=== PATIENT | female | born 1990 | race Caucasian/White ===

== ENCOUNTER 2016-12-15 14:24 | Emergency (ER) | payer OTHER ==
[~2016-12-15] VITALS: Ht 170.2 cm; Wt 104.3 kg
[~2016-12-15 14:24] MED LIST: ALBUTEROL0.09 MG/A1 INH; AMOXIL 875 MG875 MG PO; FIORICET 325 MG1 TAB PO; LIORESAL 10MG T10 MG PO; MOTRIN 600 MG600 MG PO; MOTRIN800 MG PO; PERCOCET 325 MG1 TA2 PO; PROAIR HFA0.09 MG/Ac IN; TESSALON PERLE100 MG PO; ULTRAM(MONOGRAP50 MG PO; VITAFOL-ONE1 SGL PO
--- NOTE | 2016-12-15 16:11 | ED GI/GU/ABDOMINAL COMPLAINT ---
History of Present Illness General Chief Complaint: Abdominal Pain/Flank Pain Stated Complaint: ABD PAIN Source: patient Exam Limitations: no limitations Vital Signs & Intake/Output Vital Signs & Intake/Output Vital Signs Date Time Temp Pulse Resp B/P Pulse O2 O2 Flow FiO2 Ox Delivery Rate 12/155 96.5 86 18 136/86 100 Room Air 12/15 1440 97.1 91 18 137/86 99 Room Air Allergies Coded Allergies: latex (LATEX SENSITIVITY 01/09/16) nickel (SWELLING 01/09/16) Triage Note: C/O RLQ ABDOMINAL PAIN X [address] SPAULDING, HAD US DONE, (2 CM OVARIAN CYST). PAIN WORSE TODAY, WITH VOMITING. Triage Nurses Notes Reviewed? yes ? n Is pt currently ? No Onset: Gradual Duration: day(s): (3) Timing: no prior history Quality/Severity: sharpness Severity Numbers: 7 Location: right lower quadrant Radiation: no radiation Activities at Onset: none Prior Abdominal Problems: none Past Sexual History: Unobtainable at this time No Modifying Factors: none HPI: Patient is a 26-year-old female presenting to the emergency department with chief complaint of right lower quadrant pain, nausea vomiting and tactile fevers and chills that have been going on for the past 3 days. She reports it started after having intercourse with her boyfriend. Denies any vaginal discharge or bleeding. Denies any urinary frequency or urgency or dysuria. Denies chance of STD. Sexually active with one person only. 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 She reports that the pain is moderate to severe sharp and stabbing. Denies taking anything to help with pain. (JUDD DIALLO) Reconcile Medications Acetaminophen/Butalbital/Caf (Fioricet 325 MG-50 MG-40 MG) 1 TAB TAB 1-2 TAB PO Q6P PRN HEADACHE DO NOT DRIVE AFTER TAKING IT. Albuterol Sulfate (Albuterol Sulfate Hfa) 90 MCG HFA.AER.AD 2 PUFF INH Q4-6 PRN PRN SHORTNESS OF BREATH 90 MCG PER PUFF Baclofen (Lioresal) 10 MG TAB 1 TAB PO TIDPRN PRN muscle strain Ibuprofen (Motrin) 800 MG TAB 1 TAB PO Q8H PRN PAIN Ibuprofen (Motrin 600 MG Tab) 600 MG TAB 1 TAB PO Q6P PRN PAIN Oxycodone HCl/Acetaminophen (Percocet 5-325 MG Tablet) 5 MG-325 MG TABLET 1-2 TAB PO Q6P PRN pain OXYCODONE HCL/ACETAMINOPHEN (Percocet 5-325 MG Tablet) 325 MG/5 MG TAB 1-2 TAB PO Q6 PRN pain Tramadol HCl (Ultram) 50 MG TAB 1 TAB PO Q6 PRN severe pain (JESSICA ANGULO) Past History Travel History Traveled to [place] past 21 day No Medical History Any Pertinent Medical History? see below for history Neurological: migraine EENT: TMJ Cardiovascular: NONE Respiratory: asthma Gastrointestinal: NONE Hepatic: NONE Renal: NONE Musculoskeletal: chronic back pain, disk herniation Psychiatric: depression Endocrine: NONE Blood Disorders: NONE Cancer(s): NONE KNITTING TESTER/Reproductive: NONE Surgical History Surgical History: non-contributory Psychosocial History What is your primary language Polish Tobacco Use: Current Daily Use Daily Tobacco Use Amount/Type: => 5 Cigarettes daily ETOH Use: denies use Family History Hx Contributory? No (JUDD DIALLO) Review of Systems Review of Systems Constitutional: Reports: fever, malaise. Comments Review of systems: See HPI, All other systems negative. Constitutional, no weight loss HEENT: No visual changes no sore throat no congestion Cardiovascular: No chest pain ,palpitation , orthopnea or ankle swelling Skin, no jaundice no rashes Respiratory: No dyspnea cough sputum or hemoptysis GI: No diarrhea : No dysuria No hematuria Muscle skeletal: no back pain, no neck pain, Neurologic: No numbness no confusion no tyler Psych: No stress anxiety or depression,. Heme/endocrine: No bruising no bleeding no polyuria or polydipsia Immunology: No splenectomy or history of AIDS (JUDD DIALLO) Physical Exam Physical Exam General Appearance: well developed/nourished, no apparent distress, alert, awake , comfortable Gastrointestinal: normal bowel sounds, soft, tenderness Comments: Well-developed well-nourished person in no acute distress HEENT: Pupils equally round and reactive to light and accommodation. Nose is atraumatic. External auditory canal and Tympanic membranes clear. Pharynx normal. No swelling or edema. Neck: Supple, no lymphadenopathy, normal range of motion without pain or tenderness Back: Nontender, no CVA tenderness. Cardiovascular: Regular rate and rhythms no murmurs rubs or gallops, normal JVP Respiratory: Chest nontender. No respiratory distress.breath sounds clear to auscultation bilaterally Abdomen: Soft, tender to palpation in the right lower quadrant with significant guarding, no rebound tenderness. Nondistended, no appreciable organomegaly. Normal bowel sounds. No ascites Extremity: No edema Neuro: Alert oriented x3 Skin: No appreciable rash on exposed skin, skin is warm and dry. Psych: Mood and affect is normal, memory and judgment is normal. Core Measures ACS in differential dx? No Severe Sepsis Present: No Septic Shock Present: No (WALE GRIER,JUDD) Progress Differential Diagnosis: appendicitis, ovarian cysts,gastritis, ovarian torsion,, kidney stone, dehydration, electrolyte abnormality Plan of Care: Orders Procedure Date/time Status URINE 12/15 161 Complete URINALYSIS 12/15 161 Complete C-REACTIVE PROTEIN 12/15 1610 Complete COMPREHENSIVE METABOLIC PANEL 12/15 1610 Complete CBC WITHOUT DIFFERENTIAL 12/15 1610 Complete Laboratory Tests 12/15/16 1656: Anion Gap 11, Estimated GFR > 60, BUN/Creatinine Ratio 11.7, Glucose 83, Calcium 9.7, Total Bilirubin 0.4, AST 63 H, ALT 43, Alkaline Phosphatase 52, C-Reactive Prot, Quant < 0.5, Total Protein 7.5, Albumin 4.6, Globulin 2.9, Albumin/ Globulin Ratio 1.6, CBC w Diff NO MAN DIFF REQ, RBC 4.72, MCV 91.4, MCH 30.7, RDW 13.4, MPV 8.4, Gran % 64.5, Lymphocytes % 28.9, Monocytes % 5.8, Eosinophils % 0.4, Basophils % 0.4, Absolute Granulocytes 8.9 H, Absolute Lymphocytes 4.0 H, Absolute Monocytes 0.8 H, Absolute Eosinophils 0.1, Absolute Basophils 0, PUBS MCHC 33.5, Urine Color YEL, Urine Clarity CLEAR, Urine pH 6.0, Ur Specific [place] 1.010, Urine Protein NEG, Urine Ketones NEG, Urine Nitrite NEG, Urine Bilirubin NEG, Urine Urobilinogen 0.2, Ur Leukocyte Esterase NEG, Ur Microscopic SEDIMENT EXAMINED, Urine RBC RARE, Ur Epithelial Cells RARE, Urine Hemoglobin SMALL H, Urine Glucose NEG, Urine Test NEGATIVE Diagnostic Imaging: Viewed by Me: CT Scan. Discussed w/RAD: CT Scan. Radiology Impression: PATIENT: DARRICK PERES PRESENT AGE: 26 PATIENT ACCOUNT NO: [id number] : 90 LOCATION: [facility] ORDERING PHYSICIAN: JUDD GRIER SERVICE DATE: 12/15/16 EXAM TYPE: CAT - CT ABD & PELVIS W IV CONTRAST EXAMINATION: CT ABDOMEN AND PELVIS WITH CONTRAST CLINICAL INFORMATION: Right lower quadrant pain. COMPARISON: None. TECHNIQUE: Multidetector volumetric imaging was performed of the abdomen and pelvis before and after the IV administration of 95 mL of Optiray 320 intravenous contrast. Sagittal and coronal reformatted images were obtained on the technologist's workstation. DLP: 808.57 mGy-cm. FINDINGS: LUNG BASES: The visualized lung bases are unremarkable. LIVER, GALLBLADDER, AND BILIARY TREE: The liver is normal in size, shape, and attenuation. No focal hepatic lesion or biliary ductal dilatation is present. The gallbladder is unremarkable with no evidence of radiopaque gallstones, gallbladder wall thickening, or obvious pericholecystic inflammatory changes. PANCREAS: Unremarkable. SPLEEN: Unremarkable. ADRENAL GLANDS: Unremarkable. KIDNEYS AND URETERS: The kidneys are normal in size, shape, and attenuation. No hydronephrosis, hydroureter, or calculi seen. No perinephric stranding. BLADDER: Unremarkable. GASTROINTESTINAL TRACT: The small and large bowel are unremarkable. The appendix is unremarkable. ABDOMINAL WALL: No significant hernia is appreciated. LYMPH NODES: Normal. VASCULAR: Unremarkable. PELVIC VISCERA: The right ovary is slightly heterogeneous in density measuring 3 cm AP. Uterus is anteverted. No fluid in the cul-de-sac OSSEOUS STRUCTURES: Unremarkable. IMPRESSION: 1. No acute abnormality of the abdomen or pelvis. Normal appendix. 2. Slightly heterogeneous density of the right ovary without enlargement of the ovary. The ovary could be further assessed with a pelvic ultrasound. DICTATED BY: VIKI MCKINNEY MD DATE/ TIME DICTATED:12/15/161827 MAIL MESSENGER:BREE DATE/TIME TRANSCRIBED: 12/15/161827 CONFIDENTIAL, DO NOT COPY WITHOUT APPROPRIATE AUTHORIZATION. < Electronically signed in Other Vendor System> SIGNED BY: VIKI MCKINNEY MD [id number] Initial ED EKG: none Hand-Off Endorsed To: JESSICA ANGULO Endorsed Time: 1948 Pending: ultrasound Comments: 12/15/2016 5:21:34 PM I will patient is afebrile, CBC, CMP, CRP ordered. Patient medicated with IV fluids, Zofran and Toradol. 12/15/2016 6:37:30 PM patient reports that she is feeling improved but still having pain [address] scan does not show any acute abnormality. Patient will follow ultrasound to rule out torsion. 12/15/2016 7:38:20 PM patient will be signed out to MARVEL Sparrow pending ultrasound results. if Ultrasound is negative patient will follow up with her [employer]IC[employer] WAFER BREAKER and primary care physician., Increase fluids. (JUDD DIALLO) Diagnostic Imaging: Viewed by Me: Ultrasound. Discussed w/RAD: Ultrasound. Radiology Impression: SERVICE DATE: 12/15/16 EXAM TYPE: US - US- TRANSVAGINAL EXAMINATION: ULTRASOUND PELVIC, COMPLETE CLINICAL INFORMATION: Right lower quadrant pain. COMPARISON: None. TECHNIQUE: Transvaginal: Used to better visualize pelvic structures Transabdominal: Not adequate for visualization Spectral Doppler and color Doppler exam was utilized. LMP: Approximately 3 weeks ago FINDINGS: Exam limited by body habitus and bowel gas. UTERUS: Unremarkable. Uterus measures 8 x 3.6 x 4.8 cm. Cervical length 2.4 cm. Endometrial stripe measures 1 cm. ADNEXA: Right Ovary: Doppler does demonstrate vascular flow in the right ovary. The assessment of vascularity though is limited by the position and depth of the ovary. Dominant follicle measures 1.4 cm. Left Ovary: Not visualized. Cul-de-sac: No Fluid IMPRESSION: Vascular flow noted in the right ovary with no enlargement or abnormal mass. No evidence for ovarian torsion. DICTATED BY: VIKI MCKINNEY MD DATE/TIME DICTATED:12/15/162026 MAIL MESSENGER:BREE DATE/TIME TRANSCRIBED:12/15/162026 (JESSICA ANGULO) Departure Departure Time of Disposition: 1911 Disposition: HOME OR SELF CARE Condition: Stable Clinical Impression Primary Impression: Abdominal pain Qualifiers: Abdominal location: right lower quadrant Qualified Code: R10.31 - Right lower quadrant pain Referrals: JASSON SCHWARTZ,NERIS Branham (PCP/Family) Departure Forms: Customer Survey General Discharge Information (WALE PA,JUDD) Departure Additional Instructions: Follow-up with your primary care physician as well as her [employer]IC[employer] WAFER BREAKER return for worsening symptoms or concerns. Take Percocet as prescribed. Please go over all results of today's visit with your primary care doctor. Contact your primary care doctor to let them know you were here in the emergency room. There may be nonspecific findings which may not be related to your visit today here in the emergency room but may require further evaluation and chronic monitoring by your primary care doctor. If you had a laceration today the chance of foreign body always remains. You should follow-up with your primary care doctor for recheck in 3-5 days for a wound check. If you had an x-ray done there is a chance that a fracture could have been missed on initial read and you should follow-up with your primary care doctor for repeat x-rays if symptoms persist. If your blood pressure was elevated here in the emergency room please have rechecked by her primary care doctor within the next 48 hours by your primary care doctor. If you were prescribed a narcotic here in the emergency room or any type of controlled substances you're not allowed to drive while taking this medication or operate any type of heavy machinery. Narcotics can make you feel lightheaded dizziness nausea and can cause constipation. You may need to mushroom picker a stool softener. Thank you for choosing [facility] emergency room. Please return to the emergency room immediately if you have any other concerns worsening of symptoms. Prescriptions: Current Visit Scripts Oxycodone HCl/Acetaminophen (Percocet 5-325 MG Tablet) 1-2 TAB PO Q6P PRN pain #20 TAB (JESSICA ANGULO) PA/TECHNICAL PRODUCT MANAGER Co-Sign Statement Statement: ED Attending supervision documentation- [] I saw and evaluated the patient. I have also reviewed all the pertinent lab results and diagnostic results. I agree with the findings and the plan of care as documented in the PA's/TECHNICAL PRODUCT MANAGER's documentation. [X] I have reviewed the ED Record and agree with the PA's/TECHNICAL PRODUCT MANAGER's documentation. [] Additions or exceptions (if any) to the PAs/TECHNICAL PRODUCT MANAGER's note and plan are summarized below: [] (CAROL ANN SCHWARTZ,ZURDO Segundo)
[2016-12-15 17:05] LABS: ABSOLUTE BASOPHIL COUNT 0 /CUMM (0.0-0.2); ABSOLUTE EOSINOPHIL COUNT 0.1 /CUMM (0.0-0.7); ABSOLUTE MONOCYTE COUNT 0.8 /CUMM (0.10-0.60); BASOPHIL % 0.4 % (0.0-2.0); EOSINOPHIL % 0.4 % (0-5); GRANULOCYTE % 64.5 % (42.2-75.2); HEMATOCRIT 43.1 % (37-47); MEAN CORPUSCULAR HGB 30.7 PG (27.0-31.0); MEAN CORPUSCULAR HGB CONC 33.5 G/DL (33.0-37.0); MEAN CORPUSCULAR VOLUME 91.4 FL (81.0-99.0); MEAN PLATELET VOLUME 8.4 FL (7.4-10.4); PLATELET COUNT 306 /CUMM (130-400); RBC DISTRIBUTION WIDTH 13.4 % (11.5-14.5); RED BLOOD CELL CT 4.72 /CUMM (4.20-5.40); WHITE BLOOD CELL COUNT 13.8 /CUMM (4.8-10.8)
[2016-12-15 17:06] LABS: ABSOLUTE GRANULOCYTE CT 8.9 /CUMM (1.4-6.5)
--- NOTE | 2016-12-15 18:39 | CT SCAN REPORT ---
EXAMINATION: CT ABDOMEN AND PELVIS WITH CONTRAST CLINICAL INFORMATION: Right lower quadrant pain. COMPARISON: None. TECHNIQUE: Multidetector volumetric imaging was performed of the abdomen and pelvis before and after the IV administration of 95 mL of Optiray 320 intravenous contrast. Sagittal and coronal reformatted images were obtained on the technologist's workstation. DLP: 808.57 mGy-cm. FINDINGS: LUNG BASES: The visualized lung bases are unremarkable. LIVER, GALLBLADDER, AND BILIARY TREE: The liver is normal in size, shape, and attenuation. No focal hepatic lesion or biliary ductal dilatation is present. The gallbladder is unremarkable with no evidence of radiopaque gallstones, gallbladder wall thickening, or obvious pericholecystic inflammatory changes. PANCREAS: Unremarkable. SPLEEN: Unremarkable. ADRENAL GLANDS: Unremarkable. KIDNEYS AND URETERS: The kidneys are normal in size, shape, and attenuation. No hydronephrosis, hydroureter, or calculi seen. No perinephric stranding. BLADDER: Unremarkable. GASTROINTESTINAL TRACT: The small and large bowel are unremarkable. The appendix is unremarkable. ABDOMINAL WALL: No significant hernia is appreciated. LYMPH NODES: Normal. VASCULAR: Unremarkable. PELVIC VISCERA: The right ovary is slightly heterogeneous in density measuring 3 cm AP. Uterus is anteverted. No fluid in the cul-de-sac OSSEOUS STRUCTURES: Unremarkable. IMPRESSION: 1. No acute abnormality of the abdomen or pelvis. Normal appendix. 2. Slightly heterogeneous density of the right ovary without enlargement of the ovary. The ovary could be further assessed with a pelvic ultrasound.
--- NOTE | 2016-12-15 20:33 | ULTRASOUND REPORT ---
EXAMINATION: ULTRASOUND PELVIC, COMPLETE CLINICAL INFORMATION: Right lower quadrant pain. COMPARISON: None. TECHNIQUE: Transvaginal: Used to better visualize pelvic structures Transabdominal: Not adequate for visualization Spectral Doppler and color Doppler exam was utilized. LMP: Approximately 3 weeks ago FINDINGS: Exam limited by body habitus and bowel gas. UTERUS: Unremarkable. Uterus measures 8 x 3.6 x 4.8 cm. Cervical length 2.4 cm. Endometrial stripe measures 1 cm. ADNEXA: Right Ovary: Doppler does demonstrate vascular flow in the right ovary. The assessment of vascularity though is limited by the position and depth of the ovary. Dominant follicle measures 1.4 cm. Left Ovary: Not visualized. Cul-de-sac: No Fluid IMPRESSION: Vascular flow noted in the right ovary with no enlargement or abnormal mass. No evidence for ovarian torsion.
[2016-12-15] MEDS ORDERED: PERCOCET 5-3251 EACH PO (21:17)
[2016-12-15 21:25] VITALS: BP 136/86
== END 2016-12-15 21:26 ==
LOC: ERH 14:24
PROVIDERS: Physician Assistant
DX: R10.31 Right lower quadrant pain (principal)
CPT/HCPCS: 74177; 81001; 81025; 96374; 96375; J1885

== ENCOUNTER 2017-12-20 14:52 | Inpatient (IN) | payer OTHER ==
[~2017-12-20] VITALS: Ht 170.2 cm; Wt 103.4 kg
[~2017-12-20 14:52] MED LIST changes: +BENADRYL25 MG PO; +BETAMETHASONE V15 G1 PO; +PERCOCET 5-3251 EACH PO; +VITAFOL ULTRA1 EACH PO
[2017-12-20 16:33] LABS: ABSOLUTE BASOPHIL COUNT 0.1 /CUMM (0.0-0.2); ABSOLUTE EOSINOPHIL COUNT 0 /CUMM (0.0-0.7); ABSOLUTE GRANULOCYTE CT 9.6 /CUMM (1.4-6.5); ABSOLUTE LYMPH COUNT 3.7 /CUMM (1.2-3.4); ABSOLUTE MONOCYTE COUNT 1.1 /CUMM (0.10-0.60); BASOPHIL % 0.4 % (0.0-2.0); EOSINOPHIL % 0.3 % (0-5); GRANULOCYTE % 66.1 % (42.2-75.2); HEMATOCRIT 36.1 % (37-47); MEAN CORPUSCULAR HGB 30.2 PG (27.0-31.0); MEAN CORPUSCULAR VOLUME 91.4 FL (81.0-99.0); PLATELET COUNT 421 /CUMM (130-400); RBC DISTRIBUTION WIDTH 13.8 % (11.5-14.5); RED BLOOD CELL CT 3.95 /CUMM (4.20-5.40); WHITE BLOOD CELL COUNT 14.4 /CUMM (4.8-10.8)
[2017-12-21 07:31] LABS: ABSOLUTE BASOPHIL COUNT 0 /CUMM (0.0-0.2); ABSOLUTE EOSINOPHIL COUNT 0.1 /CUMM (0.0-0.7); ABSOLUTE GRANULOCYTE CT 8.9 /CUMM (1.4-6.5); ABSOLUTE LYMPH COUNT 2.7 /CUMM (1.2-3.4); ABSOLUTE MONOCYTE COUNT 1.3 /CUMM (0.10-0.60); BASOPHIL % 0.3 % (0.0-2.0); EOSINOPHIL % 0.8 % (0-5); GRANULOCYTE % 68.2 % (42.2-75.2); HEMATOCRIT 34.5 % (37-47); MEAN CORPUSCULAR HGB CONC 33.9 G/DL (33.0-37.0); MEAN CORPUSCULAR VOLUME 91.5 FL (81.0-99.0); MEAN PLATELET VOLUME 8.3 FL (7.4-10.4); PLATELET COUNT 352 /CUMM (130-400); RBC DISTRIBUTION WIDTH 13.6 % (11.5-14.5); RED BLOOD CELL CT 3.77 /CUMM (4.20-5.40)
[2017-12-21] MEDS ORDERED: PERCOCET 5-3251 EACH PO (15:29)
[2017-12-21] MEDS ORDERED: IBUPROFEN800 M1 PO (15:29)
== END 2017-12-21 19:00 | DRG 540 ==
LOC: CBCO 14:52 → GNO 16:15
PROVIDERS: Specialist
PROC: 10D00Z1 Extraction of Products of Conception, Low, Open Approach (ICD-10-PCS; principal; 2017-12-20)
DX: O34.211 Maternal care for low transverse scar from previous cesarean delivery (principal); N85.8 Other specified noninflammatory disorders of uterus; Z3A.39 39 weeks gestation of pregnancy; Z37.0 Single live birth
CPT/HCPCS: GNOS; 80307; 81003; 87086; J0690; J1650; J1885; J7120; Q2036